=== PATIENT | male | born 1965 | race Caucasian/White ===

== ENCOUNTER → 2020-04-02 | Outpatient (CLI) | payer BC, OTHER ==
--- NOTE | 2020-04-02 16:59 | RAD ---
EXAM: Abdomen, 2 views. HISTORY: Pain. COMPARISON: None. FINDINGS: Frontal upright and supine views of the abdomen are obtained. There is gas and stool within the colon. There are nondistended air-filled loops of small bowel throughout the abdomen. There is no obstruction. There is no free air. There is an incidental transitional lumbosacral segment, a normal variant. IMPRESSION: Nonobstructive bowel gas pattern. Electronically signed by: Aye Castillo MD (04/02/2020 4:56 PM) [facility]
== END ==
LOC: DXRAD 10:26
PROVIDERS: ATTEND Physician Assistant
DX: R10.33 Periumbilical pain (principal)
CPT/HCPCS: 74019

== ENCOUNTER 2021-12-04 21:05 | Emergency (ER) | payer BC, OTHER ==
[~2021-12-04] VITALS: Ht 190.5 cm; Wt 93.0 kg
--- NOTE | 2021-12-04 21:09 | PHYS DOC ---
General Adult HPI: HPI: ".. About 4.. pm .. I started getting really bad abdomen.. here in center... never a 06/24 but close.. it is about 4-5 /10 now.. " Patient is a 56 year old male who presents with complaints of moderate to severe abdomen pain. Patient localizes pain more in periumbilical area. Patient had a colonoscopy this year which only showed 1 polyp. Patient has had abdomen surgeries x3 one for an umbilicus hernia at age 5 and then 2 inguinal hernia surgeries as an adult. Patient has had COVID vaccination. Patient does smoke and drink. Does have a history of hypertension. No recent travel. No specific ill contacts. No history of bad food intake. Patient had a normal bowel movement today. Pt. follows with [facility] for care. Pt. last ate at 1130 hrs am. Review of Systems: Review of Systems: Constitutional: Denies fever or chills Eyes: Denies change in visual acuity HENT: Denies nasal congestion or sore throat Respiratory: Denies cough or shortness of breath Cardiovascular: Denies chest pain or edema GI: Complains of abdominal pain, nausea,. Denies vomiting, bloody stools or diarrhea : Denies dysuria Musculoskeletal: Denies back pain or joint pain Integument: Denies rash Neurologic: Denies headache, focal weakness or sensory changes Endocrine: Denies polyuria or polydipsia Lymphatic: Denies swollen glands Psychiatric: Denies depression or anxiety Family History: Family History: Noncontributory to presentation-no family history of ulcerative colitis or Crohn's Current Medications: Current Meds: See nursing for home meds Allergies: Allergies: No known drug allergies Physical Exam: PE: Constitutional: , moderate acute distress, non-toxic appearance. [] HENT: Normocephalic, atraumatic, bilateral external ears normal, oropharynx moist, no oral exudates, nose normal. [] Eyes: PERRLA, EOMI, conjunctiva normal, no discharge. [] Neck: Normal range of motion, no tenderness, supple, no stridor. [] Cardiovascular: Bradycardic heart rate regular rhythm, no murmur [] Lungs & Thorax: Bilateral breath sounds equal apex with only a few scattered wheezes on auscultation [] Abdomen: Bowel sounds decreased, soft, periumbilical tenderness, no masses, no pulsatile masses. [] Midline horizontal scar from previous umbilical hernia surgery as a child, bilateral groin scars from inguinal hernia repair. Deferred rectal at this time. Rebound to the umbilicus Skin: Warm, dry, no erythema, no rash. [] Back: No tenderness, no CVA tenderness. [] Extremities: No tenderness, no cyanosis, no clubbing, ROM intact, no edema. Mild psoas sign. Neurologic: Alert and oriented X 3, normal motor function, normal sensory function, no focal deficits noted. [] Psychologic: Affect anxious, judgement normal, mood normal. [] EKG: EKG: My interpretation EKG shows a sinus bradycardia at 60 bpm. No findings of acute STEMI. There is some anterior lateral changes. Does some does have some sinus variation. Time of EKG is 2134 hrs. [] Radiology/Procedures: Radiology/Procedures: [place] [address] IMAGING REPORT Signed PATIENT: MIKEL HADLEY ACCOUNT: [id number] : 1965 LOCATION: ER AGE: 56 SEX: M EXAM STATUS: REG ER ORD. PHYSICIAN: ANTHONY GARCIA MD REASON: Abd pain, hx hernia surgery x 3, ing. and umbilicus Omni 300 75cc PROCEDURE: CT ABD PELV W/ORAL&IV CONTRAST EXAM: CT ABDOMEN/PELVIS WITH CONTRAST. HISTORY: Abdominal pain. Hernia surgery. TECHNIQUE: Computed tomography of the abdomen and pelvis was performed after the intravenous administration of iodinated contrast. One or more of the following individualized dose reduction techniques were utilized for this examination: 1. Automated exposure control. 2. Adjustment of the mA and/or kV according to patient size. 3. Use of iterative reconstruction technique. COMPARISON: None. FINDINGS: Lung windows through the visualized portions of the bases reveal mild atelectasis. Bone windows reveal no suspicious lesions. The liver, gallbladder, pancreas, spleen and right kidney are unremarkable. A subcentimeter cyst in the left kidney appears benign. The right adrenal gland is thickened without a discrete nodule. The left is unremarkable. There are no pathologically enlarged lymph nodes. The appendix is dilated to 1.7 cm with surrounding inflammatory change consistent with acute appendicitis. There is no drainable collection. There is no small bowel obstruction. There is diffuse bladder wall thickening. The prostate is not enlarged for patient age. IMPRESSION: 1. Acute appendicitis. 2. Nonfocal bladder wall thickening suggests chronic outlet obstruction or inflammation. Correlate with urinalysis. Electronically signed by: Kevin Nation MD (12/04/2021 11:25 PM) [facility] DICTATED AND SIGNED BY: PATRICIA NATION MD DATE: 12/04/212321 CC: ANTHONY GARCIA MD; KIRA HERNANDES ~MTH0 0 [][address] [address] IMAGING REPORT Signed PATIENT: MIKEL HADLEY ACCOUNT: [id number] : 1965 LOCATION: ER AGE: 56 SEX: M EXAM STATUS: REG ER ORD. PHYSICIAN: ANTHONY GARCIA MD REASON: Abd pain, hx hernia surgery x 3, ing. and umbilicus Omni 300 75cc PROCEDURE: CT ABD PELV W/ORAL&IV CONTRAST EXAM: CT ABDOMEN/PELVIS WITH CONTRAST. HISTORY: Abdominal pain. Hernia surgery. TECHNIQUE: Computed tomography of the abdomen and pelvis was performed after the intravenous administration of iodinated contrast. One or more of the following individualized dose reduction techniques were utilized for this examination: 1. Automated exposure control. 2. Adjustment of the mA and/or kV according to patient size. 3. Use of iterative reconstruction technique. COMPARISON: None. FINDINGS: Lung windows through the visualized portions of the bases reveal mild atelectasis. Bone windows reveal no suspicious lesions. The liver, gallbladder, pancreas, spleen and right kidney are unremarkable. A subcentimeter cyst in the left kidney appears benign. The right adrenal gland is thickened without a discrete nodule. The left is unremarkable. There are no pathologically enlarged lymph nodes. The appendix is dilated to 1.7 cm with surrounding inflammatory change consistent with acute appendicitis. There is no drainable collection. There is no small bowel obstruction. There is diffuse bladder wall thickening. The prostate is not enlarged for patient age. IMPRESSION: 1. Acute appendicitis. 2. Nonfocal bladder wall thickening suggests chronic outlet obstruction or inflammation. Correlate with urinalysis. Electronically signed by: Kevin Nation MD (12/04/2021 11:25 PM) [facility] DICTATED AND SIGNED BY: PATRICIA NATION MD DATE: 12/04/212321 CC: ANTHONY GARCIA MD; KIRA HERNANDES ~MTH0 0 Heart Score: C/O Chest Pain: N/A HEART Score for Chest Pain: HEART Score for Chest Pain Response (Comments) Value History Slighlty/Non-Suspicious 0 ECG Normal 0 Age >45 - < 65 1 Risk Factors 1 or 2 Risk Factors 1 Troponin < Normal Limit 0 Total 2 Risk Factors: Risk Factors: DM, Current or recent (<one month) smoker, HTN, HLP, family history of CAD, obesity. Risk Scores: Score 0 - 3: 2.5% MACE over next 6 weeks - Discharge Home Score 4 - 6: 20.3% MACE over next 6 weeks - Admit for Clinical Observation Score 7 - 10: 72.7% MACE over next 6 weeks - Early Invasive Strategies Course & Med Decision Making: Course & Med Decision Making Pertinent Labs and Imaging studies reviewed. (See chart for details) Discussed presentation, testing and tx. plan with Dr. Kam- surgery, and Dr. Edouard Hospitalist. Transfer to [facility] Impression: 1. Abdomen Pain 2. Acute Appendicitis 3. Leukocytosis 16.9 4. Accelerated HTN 5. Mild Hypokalemia 3.4 [] Dragon Disclaimer: Dragon Disclaimer: This electronic medical record was generated, in whole or in part, using a voice recognition dictation system. Departure Departure: Referrals: KIRA HERNANDES (PCP) Dragon Disclaimer This chart was dictated in whole or in part using Voice Recognition software in a busy, high-work load, and often noisy Emergency Department environment. It may contain unintended and wholly unrecognized errors or omissions. ANTHONY GARCIA MD Dec 04, 2021 21:08
--- NOTE | 2021-12-04 21:39 | EKG ---
[address] [address] Test Date: 2021-12-04 Test Time: 21:34:38 Pat Name: MIKEL HADLEY Department: Room: Gender: M [employer]: : 1965 Requested By: ANTHONY GARCIA Order Number: [id number] Reading MD: Measurements Intervals [place] Rate: 60 P: 45 SC: 150 QRS: 58 QRSD: 102 T: 43 QT: 422 QTc: 426 Interpretive Statements SINUS RHYTHM QRS(T) CONTOUR ABNORMALITY CONSIDER ANTEROLATERAL MYOCARDIAL DAMAGE POSSIBLY ABNORMAL ECG RI6.01 No previous ECG available for comparison
[2021-12-04] MEDS ORDERED: MAGNESIUM HYDROXIDE 2,400 MG/30 ML ORAL.SUSP. PO ONE (21:45)
[2021-12-04] MEDS ORDERED: ONDANSETRON PF 4 MG/2 ML VIAL. IVP ONE (21:45)
[2021-12-04] MEDS ORDERED: IV RINGERS SOLUTION,LACTATED 1,000 ML IV SCH (21:45)
[2021-12-04] MEDS ORDERED: FAMOTIDINE 20 MG/2 ML VIAL IVP ONE (21:45)
[2021-12-04] MEDS ORDERED: MORPHINE SULFATE 10 MG/ML SYRINGE. SQ ONE (21:45)
[2021-12-04] MEDS ORDERED: IOHEXOL 240 MG/ML 50ML VIAL. ONE (21:52)
[2021-12-04 21:55] LABS: BASO % 0 % (0-3); EOS # 0.1 x10^3/uL (0.0-0.7); EOS % 0 % (0-3); HEMATOCRIT 47.2 % (39.0-53.0); HEMOGLOBIN 16.3 g/dL (13.0-17.5); LYMPH # 1.5 x10^3/uL (1.0-4.8); LYMPH % 9 % (24-48); MEAN CORPUSCULAR HEMOGLOBIN 33 pg (25-35); MEAN CORPUSCULAR HGB CONC 35 g/dL (31-37); MEAN CORPUSCULAR VOLUME 96 fL (79-100); MONO # 0.7 x10^3/uL (0.0-1.1); MONO % 4 % (0-9); NEUT # 14.6 x10^3uL (1.8-7.7); NEUT % 87 % (31-73); PLATELET COUNT 266 x10^3/uL (140-400); RED BLOOD COUNT 4.91 x10^6/uL (4.30-5.70); RED CELL DISTRIBUTION WIDTH 12.8 % (11.5-14.5); WHITE BLOOD COUNT 16.9 x10^3/uL (4.0-11.0)
[2021-12-04 21:56] LABS: CALCIUM 9.5 mg/dL (8.5-10.1); CREATININE 0.7 mg/dL (0.7-1.3); GFR 116.7; POTASSIUM 3.4 mmol/L (3.5-5.1)
[2021-12-04] MEDS ORDERED: IOHEXOL 300 MG/ML 75 ML VIAL. IV ONE (22:00)
[2021-12-04 22:02] LABS: ALBUMIN 4.2 g/dL (3.4-5.0); DIRECT BILIRUBIN 0.2 mg/dL (0.0-0.2); TOTAL BILIRUBIN 0.9 mg/dL (0.2-1.0)
[2021-12-04 22:17] LABS: BARBITURATES NEG (NEG); BENZODIAZEPINES NEG (NEG); CANNABINOIDS NEG (NEG); COCAINE NEG (NEG); METHADONE NEG (NEG); OPIATES NEG (NEG); PHENCYCLIDINE NEG (NEG)
[2021-12-04 22:18] LABS: AMPHETAMINE/METHAMPHETAMINE NEG (NEG)
[2021-12-04 22:25] LABS: INFLUENZA A PATIENT NEGATIVE (NEGATIVE); INFLUENZA B PATIENT NEGATIVE (NEGATIVE)
[2021-12-04 22:26] LABS: CLARITY,URINE CLEAR; COLOR,URINE YELLOW
[2021-12-04 22:27] LABS: BACTERIA,URINE 0 /HPF (0-FEW); GLUCOSE,URINE NEG (NEG); NITRITE,URINE NEG (NEG); RBC,URINE 0 /HPF (0-2); UROBILINOGEN,URINE 0.2 mg/dL (0.2 mg/dL); WBC,URINE 0 /HPF (0-4)
[2021-12-04] MEDS ORDERED: cloNIDine TTS-2 1 PATCH PATCH TD ONE (22:30)
[2021-12-04] MEDS ORDERED: cloNIDine HCL 0.1 MG TABLET PO ONE (22:30)
[2021-12-04 22:42] LABS: % BANDS 7 % (0-9); % EOS 2 % (0-5); % LYMPHS 14 % (24-48); % MONOS 2 % (0-10); % SEGS 75 % (35-66); PLT ESTIMATE ADEQUATE (ADEQUATE)
--- NOTE | 2021-12-04 23:28 | RAD ---
EXAM: CT ABDOMEN/PELVIS WITH CONTRAST. HISTORY: Abdominal pain. Hernia surgery. TECHNIQUE: Computed tomography of the abdomen and pelvis was performed after the intravenous administ ration of iodinated contrast. One or more of the following individualized dose reduction techniques w ere utilized for this examination: 1. Automated exposure control. 2. Adjustment of the mA and/or kV according to patient size. 3. Use of iterative reconstruction technique. COMPARISON: None. FINDINGS: Lung windows through the visualized portions of the bases reveal mild atelectasis. Bone win dows reveal no suspicious lesions. The liver, gallbladder, pancreas, spleen and right kidney are unremarkable. A subcentimeter cyst in t he left kidney appears benign. The right adrenal gland is thickened without a discrete nodule. The le ft is unremarkable. There are no pathologically enlarged lymph nodes. The appendix is dilated to 1.7 cm with surrounding inflammatory change consistent with acute appendic itis. There is no drainable collection. There is no small bowel obstruction. There is diffuse bladder wall thickening. The prostate is not enlarged for patient age. IMPRESSION: 1. Acute appendicitis. 2. Nonfocal bladder wall thickening suggests chronic outlet obstruction or inflammation. Correlate urinalysis. Electronically signed by: Kevin Nation MD (12/04/2021 11:25 PM) [facility]
--- NOTE | 2021-12-04 23:28 | RAD ---
EXAM: 2 VIEW ABDOMEN WITH ONE VIEW CHEST. HISTORY: Abdominal pain. COMPARISON: 04/02/2020. FINDINGS: A frontal view of the chest and supine/upright views of the abdomen are obtained. The lungs are expanded to the 11th posterior interspaces. There are no confluent infiltrates. There i s no pneumothorax or pleural effusion. The heart is not enlarged. There is no pneumoperitoneum. There are no distended small bowel loops or significant air-fluid level s. There is gas distally. IMPRESSION: 1. No confluent infiltrates. Correlate for chronic obstructive pulmonary disease. 2. No evidence of obstruction. For to today's CT for more information. Electronically signed by: Kevin Nation MD (12/04/2021 11:26 PM) [facility]
[2021-12-04] MEDS ORDERED: metroNIDAZOLE 500 MG TABLET PO ONE (23:45)
[2021-12-04] MEDS ORDERED: IV NORMAL SALINE 50ML 50 ML ONE (23:59)
[2021-12-05] MEDS ORDERED: cefTRIAXone SODIUM 1 GM VIAL ONE
[2021-12-05] MEDS ORDERED: MORPHINE SULFATE 10 MG/ML SYRINGE. SQ ONE (00:15)
[2021-12-05 01:23] VITALS: BP 180/98
== END 2021-12-05 01:23 | disposition short-term general hospital (02) ==
LOC: ER 21:05
DX: K35.80 Unspecified acute appendicitis (principal); D72.829 Elevated white blood cell count, unspecified; I10 Essential (primary) hypertension; E87.6 Hypokalemia; Z20.822 Contact with and (suspected) exposure to COVID-19
CPT/HCPCS: 36415; 74022; 74177; 80048; 80076; 80307; 81001; 82150; 82550; 83690; 84484; 85007; 85025; 85610; 85730; 87428; 93005; 96361; 96365; 96372; 96375; 99285; C9803; J0696; J2270; J2405; J3490; J7120; Q9967; U0003